=== PATIENT | female | born 1970 | race Caucasian/White ===

== ENCOUNTER 2024-03-25 16:56 | Emergency (ER) | payer BC | END 2024-03-25 16:57 | disposition short-term general hospital (02) | LOC: ER 16:57 | DX: M41.82 Other forms of scoliosis, cervical region (principal) ==

== ENCOUNTER 2024-04-25 19:49 | Emergency (ER) | payer BC ==
[~2024-04-25] VITALS: Ht 154.9 cm; Wt 62.6 kg
[2024-04-25 20:59] VITALS: TEMP 98.2
[2024-04-25] MEDS: ONDANSETRON HCL INJ 2MG/ML 2ML 2 MG/ML VIAL IV STA ×2 (21:24→23:53)
[2024-04-25] MEDS: SODIUM CHLORIDE 0.9% 1000ML 1,000 ML IV STA (21:25)
[2024-04-25] MEDS: KETOROLAC TROMETHAMINE 30 MG/ML VIAL IV STA (21:25)
[2024-04-25 21:29] LABS: BASOPHILS % 0.7 % (0.0-1.0); EOSINOPHILS # (AUTO) 0.2 (0.0-0.4); EOSINOPHILS % 4.2 % (0.0-6.0); HEMATOCRIT 38.5 % (34.2-44.1); LYMPHOCYTES # (AUTO) 1.7 (1.0-3.2); LYMPHOCYTES % 29.2 % (18.0-39.1); MEAN CORPUSCULAR HEMOGLOBIN 29.5 pg (28-32); MEAN CORPUSCULAR HGB CONC 33.8 g/dL (31-35); MEAN CORPUSCULAR VOLUME 87.5 fL (81-99); MONOCYTES # (AUTO) 0.4 (0.2-0.8); MONOCYTES % 6.2 % (4.4-11.3); NEUTROPHILS # (AUTO) 3.4 (2.1-6.9); NEUTROPHILS % 59.5 % (38.7-80.0); PLATELET COUNT 223 x10e3/uL (140-360); RED CELL DISTRIBUTION WIDTH 12.1 % (11.7-14.4); WHITE BLOOD COUNT 5.78 x10e3/uL (4.8-10.8)
[2024-04-25 21:48] LABS: CLARITY,URINE CLEAR (CLEAR); COLOR,URINE YELLOW (YELLOW); LEUKOCYTE ESTERASE ,URINE SMALL (NEGATIVE); NITRITE,URINE NEGATIVE (NEGATIVE); PH,URINE 5.5 (5 - 7)
[2024-04-25 21:49] LABS: BILIRUBIN,URINE NEGATIVE (NEGATIVE); GLUCOSE, URINE NEGATIVE (NEGATIVE); KETONES,URINE NEGATIVE (NEGATIVE); PROTEIN,URINE DIPSTICK TRACE (NEGATIVE); URINE UROBILINOGEN 0.2 mg/dL (0.2 - 1)
[2024-04-25 21:51] LABS: ALBUMIN 4.3 g/dL (3.5-5.0); ALBUMIN/GLOBULIN RATIO 1.9 (0.8-2.0); ANION GAP 11.5 mmol/L (8-16); BILIRUBIN,TOTAL 0.3 mg/dL (0.2-1.2); CALCIUM 9.6 mg/dL (8.4-10.2); CREATININE, SERUM 1.04 mg/dL (0.57-1.11); POTASSIUM 3.5 mmol/L (3.5-5.1); TOTAL PROTEIN 6.6 g/dL (6.5-8.1)
[2024-04-25 22:03] LABS: BACTERIA,URINE MANY /HPF; RBC,URINE 0-5 /HPF (0-5)
[2024-04-25 22:04] LABS: EPITHELIAL CELLS,URINE MODERATE /LPF
[2024-04-25] MEDS ORDERED: MIRALAX119 GM PO (23:24)
[2024-04-25] MEDS ORDERED: KETOROLAC TROME10 MG PO (23:27)
[2024-04-25] MEDS: Morphine 4mg INJECTION 4 MG/ML INJ IV STA (23:54)
[2024-04-26] VITALS: PULSE 67; RESP 16; O2SAT 99
== END 2024-04-26 00:20 | disposition home or self-care (01) ==
LOC: ER 21:02
DX: R11.2 Nausea with vomiting, unspecified (principal); R10.31 Right lower quadrant pain; D25.9 Leiomyoma of uterus, unspecified
CPT/HCPCS: 36415; 74176; 80053; 81001; 83690; 85025; 99283; J1885; J2270; J2405; J7030

== ENCOUNTER → 2024-07-07 | Day surgery (SDC) | payer BC ==
[~2024-07-07] MED LIST: AMLODIPINE BESYL5 MG PO; IBUPROFEN800 MG PO; KETOROLAC TROME10 MG PO; LIDOCAINE HCL 1% 2 ML AMP ONE; LIDOCAINE HCL 2% LOCAL INJ 5 ML SDV VIAL INJ ONE; MIRALAX119 GM PO; PROPOFOL IV EMULSION 10 MG/ML 50 ML VIAL IV ONE; VALSARTAN-HCTZ1 EAC1 PO
[2024-07-07] MEDS: LACTATED RINGER'S 1,000 ML ONE (13:55)
[2024-07-07 16:30] VITALS: BP 122/78; PULSE 69; RESP 16; TEMP 97; O2SAT 100
== END | disposition home or self-care (01) ==
LOC: OR 13:19
PROVIDERS: ATTEND Internal Medicine Gastroenterology
DX: Z12.11 Encounter for screening for malignant neoplasm of colon (principal); D12.3 Benign neoplasm of transverse colon; K29.70 Gastritis, unspecified, without bleeding; K22.2 Esophageal obstruction; K20.90 Esophagitis, unspecified without bleeding; K44.9 Diaphragmatic hernia without obstruction or gangrene; L29.0 Pruritus ani; K57.30 Diverticulosis of large intestine without perforation or abscess without bleeding; K59.00 Constipation, unspecified; Z71.3 Dietary counseling and surveillance; I10 Essential (primary) hypertension; Z71.89 Other specified counseling; M41.9 Scoliosis, unspecified; M54.2 Cervicalgia; N20.0 Calculus of kidney; F17.210 Nicotine dependence, cigarettes, uncomplicated; Z71.6 Tobacco abuse counseling; Z88.6 Allergy status to analgesic agent; Z88.8 Allergy status to other drugs, medicaments and biological substances; Z91.048 Other nonmedicinal substance allergy status; Z01.810 Encounter for preprocedural cardiovascular examination; Z79.1 Long term (current) use of non-steroidal anti-inflammatories (NSAID); Z79.899 Other long term (current) drug therapy; Z68.24 Body mass index [BMI] 24.0-24.9, adult
CPT/HCPCS: 43239; 43450; 45385; 81025; 93005; J2003; J2470; J7121